=== PATIENT | female | born 1950 | race Caucasian/White ===

== ENCOUNTER 2016-08-03 07:27 | Day surgery (SDC) | payer MEDICARE, OTHER ==
[~2016-08-03] VITALS: Ht 167.6 cm; Wt 80.2 kg
[~2016-08-03 07:27] MED LIST: CLARITIN10 MG PO; FISH OIL 1,0001 EAC1 PO; FLONASE 50 MCG/16 GM NOSE; JUICE PLUS PO; LEVOTHROID(SYN75 MCG PO
[2016-08-03] MEDS ORDERED: TYLENOL EXTRA500 MG PO (08:01)
[2016-08-03] MEDS ORDERED: ALLERGY SYRING1 EAC3 SUB-Q (08:04)
== END 2016-08-03 10:10 | disposition disaster alternative care site (69) ==
LOC: GEND 07:27 → GPOC 07:30 → GEND 10:10 → GPOC 13:00
PROC: 0DBK8ZZ Excision of Ascending Colon, Via Natural or Artificial Opening Endoscopic (ICD-10-PCS; principal; 2016-08-03)
PROC: 0DBK8ZZ Excision of Ascending Colon, Via Natural or Artificial Opening Endoscopic (ICD-10-PCS; 2016-08-03)
DX: Z12.11 Encounter for screening for malignant neoplasm of colon (principal); D12.2 Benign neoplasm of ascending colon; K63.5 Polyp of colon; R19.4 Change in bowel habit; E78.5 Hyperlipidemia, unspecified; E03.9 Hypothyroidism, unspecified; Z98.890 Other specified postprocedural states
CPT/HCPCS: J1610; J2001; J7030